=== PATIENT | male | born 1990 | race Caucasian/White ===

== ENCOUNTER 2019-11-20 08:57 | Emergency (ER) | payer SELFPAY ==
[~2019-11-20] VITALS: Ht 175.3 cm; Wt 78.7 kg
--- NOTE | 2019-11-20 09:19 | NUR ---
PT PRESENTS TO ED WITH C/O SCANT BLOOD NOTED WITH BOWEL MOVEMENT THIS AM. PT STATES HE HAS HAD A HEMMORHOID X 1 WEEK, DENIES PAIN. PT A&O, RESPS EVEN AND UNLABORED, NADN. PT PLACED IN GOWN AND GIVEN BLANKET. CALL LIGHT IN REACH. AWAITING MD AND ORDERS AT THIS TIME.
--- NOTE | 2019-11-20 09:33 | NUR ---
pt instructed to provide clean catch ua, pt up to bathroom with steady gait at this time.
--- NOTE | 2019-11-20 09:53 | NUR ---
pt registered under wrong birthday, registration notified. birthday corrected, new labels at bedside. urine sent to lab with correct labels. optical laboratory technician at bedside for draw.
[2019-11-20 10:02] LABS: BASOPHILS # (AUTO) 0.03 x10^3/uL (0-0.1); BASOPHILS % (AUTO) 1 % (0-1); EOSINOPHILS # (AUTO) 0.15 x10^3/uL (0-0.4); EOSINOPHILS % (AUTO) 4 % (1-7); LYMPHOCYTES # (AUTO) 0.75 x10^3/uL (1-3.4); LYMPHOCYTES % (AUTO) 18 % (22-44); MD NO; MEAN CORPUSCULAR HEMOGLOBIN 30.3 pg (27.5-34.5); MEAN CORPUSCULAR HGB CONC 33.1 g/dL (33.2-36.2); MEAN CORPUSCULAR VOLUME 91.4 fL (81-97); MEAN PLATELET VOLUME 8.6 fL (7.4-10.4); MONOCYTES # (AUTO) 0.66 x10^3/uL (0.2-0.8); MONOCYTES % (AUTO) 16 % (2-9); NEUTROPHILS # (AUTO) 2.58 x10^3/uL (1.8-6.8); NEUTROPHILS % (AUTO) 62 % (42-75); PLATELET COUNT 173 x10^3/uL (130-400); RED BLOOD COUNT 4.68 x10^6/uL (4.38-5.82); RED CELL DISTRIBUTION WIDTH 13.6 % (9.4-14.8)
[2019-11-20 10:02] LABS: MICROSCOPIC NOT IND
[2019-11-20 10:10] LABS: CULTURE INDICATED? NO
[2019-11-20 10:11] LABS: INTERNATIONAL NORMALIZED RATIO 1.01 (0.93-1.1); PROTHROMBIN TIME 10.7 Seconds (9.6-11.5)
[2019-11-20 10:14] LABS: ALBUMIN 3.7 g/dL (3.4-5.0); ANION GAP 5 mmol/L (5-15); CALCIUM 8.4 mg/dL (8.5-10.1); CHLORIDE 110 mmol/L (98-107)
[2019-11-20 10:18] LABS: ALANINE AMINOTRANSFERASE 18 U/L (12-78); ALKALINE PHOSPHATASE 84 U/L (45-117); BILIRUBIN,TOTAL 0.5 mg/dL (0.2-1.0)
--- NOTE | 2019-11-20 11:21 | NUR ---
ALL RESULTS BACK, CHART UP FOR RECHECK. AWAITING MD AND DISPO. REPORT GIVEN TO [facility].
[2019-11-20 11:52] VITALS: BP 130/90
== END 2019-11-20 11:54 | disposition home or self-care (01) ==
LOC: EDBD 08:57 → ED 10:13
DX: K62.89 Other specified diseases of anus and rectum (principal); F17.200 Nicotine dependence, unspecified, uncomplicated
CPT/HCPCS: 36415; 80053; 81003; 85025; 85610; 99283

== ENCOUNTER 2021-03-01 03:31 | Emergency (ER) | payer SELFPAY ==
[~2021-03-01] VITALS: Ht 175.3 cm; Wt 79.9 kg
[2021-03-01 03:33] VITALS: BP 116/80
--- NOTE | 2021-03-01 03:44 | NUR ---
PT CAME INTO THE ED THIS EVENING DUE TO LEFT ARMPIT PAIN, STARTED THIS AFTERNOON, NO TRAUMA, PULSES 2+, SENSATION INTACT, NOT DEFORMITY NOTED AT THIS TIME. LIMITED RANGE OF MOTION WITH THAT ARM. 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 PT PLACED ON SPO2/BP/ECG MONITORING. BED IN LOWEST, RAILS ENGAGED, CALL LIGHT ON LAP, WCTM.
--- NOTE | 2021-03-01 04:29 | NUR ---
Patient given discharge instructions and they have confirmed that they understand the instructions. Patient ambulatory with steady gait. no personal belonging left in room. vss
[2021-03-01] MEDS ORDERED: KETOROLAC 30 MG/1 ML IM ONE (04:30)
--- NOTE | 2021-03-01 04:36 | NUR ---
pt refused toradol medication IM shot. educated on benefits of medication but still refused.
== END 2021-03-01 04:32 | disposition home or self-care (01) ==
LOC: ED 04:01
DX: S29.012A Strain of muscle and tendon of back wall of thorax, initial encounter (principal); S46.912A Strain of unspecified muscle, fascia and tendon at shoulder and upper arm level, left arm, initial encounter; F17.200 Nicotine dependence, unspecified, uncomplicated; X58.XXXA Exposure to other specified factors, initial encounter; Y93.89 Activity, other specified; Y92.89 Other specified places as the place of occurrence of the external cause; Y99.8 Other external cause status
CPT/HCPCS: 99283